=== PATIENT | female | born 1990 | race Two or more races ===

== ENCOUNTER 2021-08-02 08:03 | Outpatient (CLI) | payer OTHER | END 2021-08-02 09:00 | disposition home or self-care (01) | LOC: PRENATAL 08:03 | PROVIDERS: ATTEND Obstetrics & Gynecology Maternal & Fetal Medicine | DX: O35.0XX1 Maternal care for (suspected) central nervous system malformation in fetus, fetus 1 (principal); O35.3XX1 Maternal care for (suspected) damage to fetus from viral disease in mother, fetus 1; O98.512 Other viral diseases complicating pregnancy, second trimester; O10.012 Pre-existing essential hypertension complicating pregnancy, second trimester; O99.212 Obesity complicating pregnancy, second trimester; Z36.89 Encounter for other specified antenatal screening; Z3A.20 20 weeks gestation of pregnancy ==

== ENCOUNTER 2021-09-26 09:55 | Outpatient (CLI) | payer OTHER | END 2021-09-26 11:00 | disposition home or self-care (01) | LOC: PRENATAL 09:55 | PROVIDERS: ATTEND Obstetrics & Gynecology Maternal & Fetal Medicine | DX: O26.849 Uterine size-date discrepancy, unspecified trimester (principal) ==

== ENCOUNTER 2021-11-09 12:34 | Outpatient (CLI) | payer OTHER | END 2021-11-09 15:08 | disposition home or self-care (01) | LOC: PRENATAL 12:34 | PROVIDERS: ATTEND Obstetrics & Gynecology Maternal & Fetal Medicine | DX: O26.849 Uterine size-date discrepancy, unspecified trimester (principal); O36.8199 Decreased fetal movements, unspecified trimester, other fetus; O10.019 Pre-existing essential hypertension complicating pregnancy, unspecified trimester; Z3A.34 34 weeks gestation of pregnancy ==

== ENCOUNTER 2023-07-28 16:26 | Emergency (ER) | payer OTHER ==
[~2023-07-28] VITALS: Ht 160 cm; Wt 93.4 kg
[2023-07-28] MEDS ORDERED: PRENA1 TRUE CO1 EACH PO (16:36)
[2023-07-28 18:11] LABS: HEMATOCRIT 35.5 % (36.0-45.00); HEMOGLOBIN 12.1 g/dL (12.0-15.00); MEAN CORPUSCULAR HEMOGLOBIN 30.8 pg (27.00-32.0); MEAN CORPUSCULAR HGB CONC 34.2 g/dl (32.0-36.0); PLATELET COUNT 138 K/uL (150-450); RED BLOOD COUNT 3.95 M/uL (4.00-6.00); RED CELL DISTRIBUTION WIDTH 14.3 % (11.5-14.5)
[2023-07-28 18:23] LABS: INR 0.95; PARTIAL THROMBOPLASTIN TIME 23.9 SECONDS (22.0-34.0)
[2023-07-28 18:54] LABS: URINE APPEARANCE Cloudy; URINE BILIRRUBIN Negative (NEGATIVE); URINE BLOOD Large; URINE COLOR Orange; URINE GLUCOSE Negative (NEGATIVE); URINE LEUKOCYTE Negative; URINE NITRATE Negative; URINE PROTEIN Trace (NEGATIVE)
[2023-07-28 18:56] LABS: ALBUMIN 3.6 gm/dL (3.4-5.0); BILIRUBIN TOTAL 0.43 mg/dL (0.3-1.2); CALCIUM 9.3 mg/dL (8.5-10.1); CREATININE SERUM 0.46 mg/dL (0.55-1.02); GFR 159.5; GLOBULINA 3.8 G/DL (2.4-3.5); POTASSIUM 3.28 mEq/L (3.5-5.1); TOTAL PROTEIN 7.4 gm/dL (6.4-8.2)
[2023-07-28 18:58] LABS: URINE BACTERIA 842.9 uL (0.0-1933); URINE EPITHELIAL CELLS 55.6 uL (0.0-38.8); URINE RBC 76.7 uL (0.0-20.8); URINE WBC 5.1 uL (0.0-23.2)
== END 2023-07-28 21:58 | disposition home or self-care (01) ==
LOC: ER 16:27
PROVIDERS: General Practice
DX: O20.9 Hemorrhage in early pregnancy, unspecified (principal); O43.891 Other placental disorders, first trimester; Z3A.12 12 weeks gestation of pregnancy

== ENCOUNTER 2023-08-15 17:42 | Emergency (ER) | payer OTHER ==
[~2023-08-15] VITALS: Ht 160 cm; Wt 93.0 kg
[~2023-08-15 17:42] MED LIST: PRENA1 TRUE CO1 EACH PO
[2023-08-15 20:09] LABS: HEMATOCRIT 37.6 % (36.0-45.00); MEAN CELL VOLUME 90.7 fL (80.00-100.00); MEAN CORPUSCULAR HEMOGLOBIN 31.4 pg (27.00-32.0); MEAN CORPUSCULAR HGB CONC 34.6 g/dl (32.0-36.0); PLATELET COUNT 160 K/uL (150-450); RED BLOOD COUNT 4.14 M/uL (4.00-6.00); RED CELL DISTRIBUTION WIDTH 13.9 % (11.5-14.5)
[2023-08-15 20:17] LABS: PH,URINE 6.5 (5.0-8.0); URINE APPEARANCE Cloudy; URINE BACTERIA 855.5 uL (0.0-1933); URINE BILIRRUBIN Negative (NEGATIVE); URINE BLOOD Large; URINE COLOR Yellow; URINE EPITHELIAL CELLS 91.5 uL (0.0-38.8); URINE GLUCOSE Negative (NEGATIVE); URINE LEUKOCYTE Trace; URINE NITRATE Negative; URINE PROTEIN Negative (NEGATIVE); URINE RBC 111.3 uL (0.0-20.8)
[2023-08-15 20:29] LABS: URINE MUCUS SCANT
[2023-08-15 20:46] LABS: CALCIUM 9.3 mg/dL (8.5-10.1); CREATININE SERUM 0.43 mg/dL (0.55-1.02); GFR 172.41; POTASSIUM 4.01 mEq/L (3.5-5.1)
== END 2023-08-16 00:59 | disposition home or self-care (01) ==
LOC: ER 17:43
PROVIDERS: Emergency Medicine
DX: O20.9 Hemorrhage in early pregnancy, unspecified (principal); Z3A.14 14 weeks gestation of pregnancy

== ENCOUNTER 2023-09-12 14:00 | Emergency (ER) | payer OTHER ==
[~2023-09-12] VITALS: Ht 160 cm; Wt 93.0 kg
[2023-09-12 16:43] LABS: HEMATOCRIT 28.4 % (36.0-45.00); HEMOGLOBIN 9.9 g/dL (12.0-15.00); MEAN CELL VOLUME 90.8 fL (80.00-100.00); MEAN CORPUSCULAR HEMOGLOBIN 31.7 pg (27.00-32.0); MEAN CORPUSCULAR HGB CONC 34.7 g/dl (32.0-36.0); PLATELET COUNT 154 K/uL (150-450); RED BLOOD COUNT 3.12 M/uL (4.00-6.00); RED CELL DISTRIBUTION WIDTH 14.1 % (11.5-14.5)
[2023-09-12 17:02] LABS: INR < 0.93; PARTIAL THROMBOPLASTIN TIME 24.3 SECONDS (22.0-34.0); PROTHROMBIN TIME 9.8 SECONDS (9.0-11.5)
[2023-09-12 17:05] LABS: CALCIUM 9.8 mg/dL (8.5-10.1); CREATININE SERUM 0.48 mg/dL (0.55-1.02); GFR 151.85; POTASSIUM 3.82 mEq/L (3.5-5.1)
[2023-09-12 19:07] LABS: URINE APPEARANCE Cloudy; URINE BILIRRUBIN Negative (NEGATIVE); URINE BLOOD Large; URINE COLOR Yellow; URINE GLUCOSE Negative (NEGATIVE); URINE LEUKOCYTE Moderate; URINE NITRATE Negative; URINE PROTEIN Trace (NEGATIVE)
[2023-09-12 19:11] LABS: URINE BACTERIA 1896.2 uL (0.0-1933); URINE EPITHELIAL CELLS 74.1 uL (0.0-38.8); URINE RBC 95.4 uL (0.0-20.8); URINE WBC 73.4 uL (0.0-23.2)
[2023-09-12 19:33] LABS: URINE CRYSTALS MODERATE /HPF
[2023-09-12] MEDS ORDERED: INTEGRA PLUS C1 EACH PO (19:47)
== END 2023-09-12 19:56 | disposition home or self-care (01) ==
LOC: ER 14:00
PROVIDERS: General Practice
DX: O20.8 Other hemorrhage in early pregnancy (principal); O43.892 Other placental disorders, second trimester; Z3A.16 16 weeks gestation of pregnancy

== ENCOUNTER 2023-09-22 08:32 | Emergency (ER) | payer OTHER ==
[~2023-09-22] VITALS: Ht 160 cm; Wt 93.0 kg
[~2023-09-22 08:32] MED LIST changes: +INTEGRA PLUS C1 EACH PO
[2023-09-22 09:58] LABS: HEMATOCRIT 27.6 % (36.0-45.00); HEMOGLOBIN 9.6 g/dL (12.0-15.00); MEAN CELL VOLUME 89.6 fL (80.00-100.00); MEAN CORPUSCULAR HEMOGLOBIN 31.1 pg (27.00-32.0); MEAN CORPUSCULAR HGB CONC 34.7 g/dl (32.0-36.0); PLATELET COUNT 141 K/uL (150-450); RED BLOOD COUNT 3.08 M/uL (4.00-6.00); RED CELL DISTRIBUTION WIDTH 14.7 % (11.5-14.5)
[2023-09-22 10:37] LABS: PROTHROMBIN TIME 9.7 SECONDS (9.0-11.5)
[2023-09-22 10:38] LABS: INR < 0.93; PARTIAL THROMBOPLASTIN TIME 23.4 SECONDS (22.0-34.0)
[2023-09-22 10:46] LABS: URINE APPEARANCE Cloudy; URINE BILIRRUBIN Negative (NEGATIVE); URINE BLOOD Large; URINE COLOR Orange; URINE GLUCOSE Negative (NEGATIVE); URINE LEUKOCYTE Moderate; URINE NITRATE Negative
[2023-09-22 10:46] LABS: CREATININE SERUM 0.39 mg/dL (0.55-1.02); GFR 192.97; POTASSIUM 3.45 mEq/L (3.5-5.1)
[2023-09-22 10:50] LABS: URINE BACTERIA 1384.7 uL (0.0-1933); URINE EPITHELIAL CELLS 20.4 uL (0.0-38.8); URINE RBC 1511.3 uL (0.0-20.8); URINE WBC 133.5 uL (0.0-23.2)
[2023-09-22 11:58] LABS: URINE PROTEIN 100 (NEGATIVE)
== END 2023-09-22 14:11 | disposition home or self-care (01) ==
LOC: ER 08:32
PROVIDERS: General Practice
DX: O23.32 Infections of other parts of urinary tract in pregnancy, second trimester (principal); Z3A.18 18 weeks gestation of pregnancy; R10.2 Pelvic and perineal pain; I10 Essential (primary) hypertension; N39.0 Urinary tract infection, site not specified